=== PATIENT | female | born 1965 | race Caucasian/White ===

== ENCOUNTER 2023-11-23 16:36 | Outpatient (CLI) | payer OTHER, SELFPAY ==
--- NOTE | ~2023-11-23 | XR_ITS ---
Left Knee Technique: AP and lateral views were obtained. Clinical History: Pain Findings: No fracture or dislocation is seen. Osseous alignment is anatomic. Joint there is mild late ral joint line spurring. Soft tissues are unremarkable. No joint effusion is seen. Impression: Mild lateral joint line spurring. Reviewed, dictated and finalized at location . Impression: Mild lateral joint line spurring.
--- NOTE | ~2023-11-23 | XR_ITS ---
AP and lateral views of the left tibia/fibula Clinical History: Pain Findings: No acute fracture or dislocation is seen. Osseous alignment is anatomic. There is mild dege nerative spurring at the knee. Tibiotalar joint intact. Soft tissues are unremarkable. Impression: Mild degenerative spurring at the knee. Reviewed, dictated and finalized at [facility]. Impression: Mild degenerative spurring at the knee.
== END 2023-11-23 16:37 ==
DX: M25.762 Osteophyte, left knee (principal)
CPT/HCPCS: 73560; 73590